=== PATIENT | female | born 1950 | race Caucasian/White ===

== ENCOUNTER → 2017-10-29 | Outpatient (CLI) | payer OTHER ==
[~2017-10-29] MED LIST: CITRATE OF MAG296 ML PO; DEXILANT60 MG PO; PERCOCET 5/31 TABLET PO; ZOFRAN ODT4 MG PO
== END | disposition home or self-care (01) ==
LOC: NUC 09:48
DX: R10.11 Right upper quadrant pain (principal)
CPT/HCPCS: 78227; A9537